=== PATIENT | male | born 1950 | race Caucasian/White ===

== ENCOUNTER 2024-01-21 10:23 | Inpatient (IN) | payer MEDICARE, OTHER, SELFPAY ==
[2024-01-21] VITALS (13 sets, daily range): BP systolic 135–142; BP diastolic 81–85; PULSE 55–79; RESP 18; TEMP 35.3–36.6; O2SAT 84–98; BMI 30.8
--- NOTE | 2024-01-21 10:59 | ED_ITS ---
HPI - General Adult General Chief complaint: Hip Injury/Pain Stated complaint: fall Time Seen by Provider: 01/21/24 10:47 History of Present Illness HPI narrative: [place] and c/o right hip pain. deformity noted . given zofran and dilaudid enroute 73-year-old man presenting to the emergency department via EMS after slip and fall in the past urine some in your injuring his right hip. Also had some right shoulder pain but that seems to have lessened a great deal. Denies hitting his head. No complaints of neck or back pain. No abdominal pain. Apparently has never has significant hip injury but has had knee replacement. Is having a great deal of pain in this right hip alleviated with Dilaudid via EMS. Nausea improved with smelling salts apparently. Was usual state of health today when he fell. 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 Is anticoagulated with apixaban with a history of atrial fibrillation and complete heart block requiring pacemaker remotely. Does have rate control with sotalol. History also of knee replacement and appendectomy Related Data Home Medications ?Medication ?Instructions ?Recorded ?Confirmed apixaban 5 mg tablet 5 mg PO BID 01/21/24 01/21/24 famotidine 20 mg tablet (Acid 20 mg PO DAILY 01/21/24 01/21/24 Controller) furosemide 20 mg tablet 20 mg PO DAILY 01/21/24 01/21/24 sotalol 80 mg tablet (Betapace) 80 mg PO DAILY 01/21/24 01/21/24 tamsulosin 0.4 mg capsule (Flomax) 0.4 mg PO DAILY 01/21/24 01/21/24 Allergies Allergy/AdvReac Type Severity Reaction Status Date / Time No Known Drug Allergies Allergy Verified 01/21/24 10:34 Review of Systems Status of ROS: Reports: 6 or more systems reviewed and unremarkable except as noted in History and below [facility] Social History Smoking Status: Never smoker Do you use any of these nicotine containing products: None Second hand tobacco smoke exposure: No How often do you have a drink containing alcohol: never AUDIT-C Alcohol total score: 0 Non-prescribed substance use: denies use service: No Exam Narrative: Exam Narrative: Pleasant. NAD. Seems little tired I think this is effect of hydromorphone. Head is atraumatic. He is wearing glasses. Eyes are bright consistent with lens implantation. Cranial nerves 2-12 look to be intact. Is breathing easily. Lungs are clear. Neck is supple nontender. Back nontender. No injury or deformity appreciated to back on partial log roll. Abdomen is soft or weight nontender. No mass appreciated. He has a well-healed scar in the right lower abdomen consistent with open appendectomy. Left knee is flexed, hip is flexed and does not elicit pain with manipulation of this hip. Right leg is straight and any manipulation of the hip causes pain though not to palpation. Movement of the hip joint particular elicits pain. Hemosiderin deposition in the lower leg. Mild-trace pretibial pitting edema. Generally well perfused. Moving upper extremities without difficulty. No pain to palpation over the chest wall clavicles. Oropharynx is a little dry with dentition in good repair. Const: Vital Signs, click to edit/add: Vital Signs - 24 hr 01/21/24 10:31 01/21/24 12:33 01/21/24 12:43 Temperature 95.6 F L Pulse Rate [Right Pulse Oximeter] 60 Respiratory Rate 18 Blood Pressure [Ri ght Upper Arm] 138/81 Pulse Oximetry 94 84 L 95 Oxygen Delivery Me thod Room Air Nasal Cannula Oxygen Flow Rate 2 01/21/24 12:45 01/21/24 13:00 01/21/24 13:30 Temperature Pulse Rate [Right Pulse Oximeter] Respiratory Rate Blood Pressure [Ri ght Upper Arm] Pulse Oximetry 91 97 94 Oxygen Delivery Me thod Nasal Cannula Oxygen Flow Rate 2 2 2 01/21/24 14:00 Temperature Pulse Rate [Right Pulse Oximeter] Respiratory Rate Blood Pressure [Ri ght Upper Arm] Pulse Oximetry 95 Oxygen Delivery Me thod Oxygen Flow Rate 2 Documenting provider has reviewed patient's vital signs: yes Course Vital Signs Vital signs: Initial Vital Signs Temperature 95.6 F L 01/21/24 10:31 Temperature Source Temporal Artery Scan 01/21/24 10:31 Pulse Rate 60 01/21/24 10:31 Respiratory Rate 18 01/21/24 10:31 Blood Pressure 138/81 01/21/24 10:31 Blood Pressure Mean 100 01/21/24 10:31 Blood Pressure Position Sitting 01/21/24 10:31 Pulse Oximetry 94 01/21/24 10:31 Oxygen Delivery Method Room Air 01/21/24 10:31 Vital Signs Temperature 95.6 F L 01/21/24 10:31 Pulse Rate 60 01/21/24 10:31 Respiratory Rate 18 01/21/24 10:31 Blood Pressure 138/81 01/21/24 10:31 Pulse Oximetry 94 01/21/24 10:31 Oxygen Delivery Method Room Air 01/21/24 10:31 Temperature 95.6 F L 01/21/24 10:31 Pulse Rate 60 01/21/24 10:31 Respiratory Rate 18 01/21/24 10:31 Blood Pressure 138/81 01/21/24 10:31 Pulse Oximetry 95 01/21/24 14:00 Oxygen Delivery Method Nasal Cannula 01/21/24 12:45 Oxygen Flow Rate 2 01/21/24 14:00 Medications Administered Medications: Discontinued Medications Generic Name Dose Route Start Last Admin Trade Name Freq PRN Reason Stop Dose Admin Hydromorphone HCl 0.5 mg 01/21/24 12:21 01/21/24 12:30 Hydromorphone 0.5 Mg/0.5 Ml Inj IVP 01/21/24 12:22 0.5 mg ONCE ONE Administration Sodium Chloride 500 mls @ 500 mls/hr 01/21/24 11:20 01/21/24 13:04 0.9 % Sodium Chloride 500 Ml IV 01/21/24 12:19 Infused .Q1H ONE Infusion Ondansetron HCl 4 mg 01/21/24 12:21 01/21/24 12:27 Ondansetron 2 Mg/Ml Inj IVP 01/21/24 12:22 4 mg ONCE ONE Administration Medical Decision Making MDM Narrative Medical decision making narrative: Slip and fall event with presumed right hip fracture. Will be doing imaging and collecting labs with anticipation of surgery. Otherwise generally appears well. Monitor fluid status. X-rays reviewed by me shows confirm right hip femoral neck fracture. Apixaban last taken at approximately 8:30 p.m. on 01/19 Study:?XRay-Hip Right 3 view hip-01/21/2024 12:04:43 PM Ordering Physician:Ivette Silva Final Report: Indication: Fell, right hip pain Technique: AP view of the pelvis, two views of the right hip. Comparison: None. Findings: Mildly displaced right femoral neck subcapital fracture. [id number] degenerative changes of the bilateral hips. Impression: Mildly displaced right femoral neck subcapital fracture. Did discuss with hospitalist anticipating admission. Has been about 20 hours since last apixaban dosing. Able to reach Orthopedics who accepts but too late in the day for surgery today it appears. Will be admitted overnight. Lab Data Lab results reviewed: Yes I reviewed the patient's lab results Labs: Lab Results 01/21/24 01/21/24 Range/Units 11:30 11:37 WBC 7.75 (4.50-11.00) K/uL RBC 4.53 (4.30-5.90) m/uL Hgb 14.9 (13.5-17.5) gm/dL Hct 44.6 (37.0-53.0) % MCV 99 (80-100) fL MCH 33 (26-34) pg MCHC 33 (32-36) gm/dL RDW Coeff of Leigha 12.9 (11.5-15.5) % Plt Count 138 L (140-440) K/uL Neut % (Auto) 74.4 H (42.0-72.0) % Lymph % (Auto) 18.3 L (20-44) % Bracken % (Auto) 6.5 (0.0-11.0) % Eos % (Auto) 0.5 (0.0-7.0) % Baso % (Auto) 0.0 (0.0-3.0) % Neut # (Auto) 5.80 (1.7-7.0) K/uL Lymph # (Auto) 1.40 (0.90-2.90) K/uL Bracken # (Auto) 0.50 (0.00-0.90) K/UL Eos # (Auto) 0.04 (0.00-0.50) K/uL Baso # (Auto) 0.00 (0.00-0.30) K/uL Abs Immat Gran (auto) 0.02 (0.00-0.30) K/uL Imm/Tot Granulo (auto) 0.3 % INR 0.99 (0.91-1.10) APTT 30 (23-33) Seconds Sodium 141 (135-149) mmol/L Potassium 3.8 (3.6-5.1) mmol/L Chloride 112 (96-114) mmol/L Carbon Dioxide 25 (20-32) mmol/L Anion Gap 4 L (7-15) mEq/L BUN 19 (7-30) mg/dL Creatinine 1.0 (0.5-1.5) mg/dL Estimated Creat Clear 80.44 Estimated GFR 78 ml/min Glucose 118 H (60-115) mg/dL Calcium 9.5 (8.4-10.6) mg/dL ECG Data Attestation: I personally reviewed and interpreted this ECG as follows: (Normal sinus rhythm with atrial pacer spike. Rate of 69) Discharge Plan Discharge Clinical Impression: Hip fracture Patient Disposition: Admitted As Observation Condition: Stable
--- NOTE | 2024-01-21 11:17 | CRLHL7_ITS ---
For Patients: As a result of the Century Cures Act, medical imaging exams and procedure reports are released immediately into your electronic medical record. You may view this report before your referring provider. If you have questions, please contact your health care provider. INDICATION: Fall, right hip pain TECHNIQUE: Single view pelvis with AP and frogleg views of the right hip. COMPARISONS: None available. FINDINGS: Femoral heads are well-seated in the acetabula. There is an impacted subcapital femoral neck fracture. Moderate degenerative changes of the bilateral hips are appreciated with loss of joint space and marginal osteophyte formation. Small joint effusion is appreciated. IMPRESSION: Impacted subcapital femoral neck fracture of the right hip. Dictated by José Luis Mcqueen MD @ 01/21/2024 12:36:12 PM (Electronically Signed)
--- NOTE | 2024-01-21 11:18 | CRLHL7_ITS ---
For Patients: As a result of the Cures Act, medical imaging exams and procedure reports are released immediately into your electronic medical record. You may view this report before your referring provider. If you have questions, please contact your health care provider. INDICATION: Fell, right hip pain. pre-op TECHNIQUE: Chest 1 views. COMPARISON: None. FINDINGS: Cardiovascular and mediastinum: Cardiomediastinal silhouette is borderline enlarged. Left chest wall pacer with leads extending to the right atrium and ventricle. Lungs and pleural spaces: Lungs are clear. No sign of pleural effusion. No pneumothorax. Bones and soft tissues: No significant findings. IMPRESSION: No acute cardiopulmonary process identified. Dictated by Nikkie Gutierrez MD @ 01/21/2024 12:41:47 PM (Electronically Signed)
[2024-01-21] MEDS: 0.9 % SODIUM CHLORIDE 500 ML 500 ML IV (11:40)
[2024-01-21 11:49] LABS: Eosinophils Absolute Auto 0.04 K/uL (0.00-0.50); Eosinophils Percent Auto 0.5 % (0.0-7.0); Hematocrit 44.6 % (37.0-53.0); Hemoglobin* 14.9 gm/dL (13.5-17.5); Immature Granulocytes Abs Auto 0.02 K/uL (0.00-0.30); Immature Granulocytes Pct Auto 0.3 %; Lymphocytes Percent Auto 18.3 % (20-44); Mean Corpuscular HGB Conc 33 gm/dL (32-36); Mean Corpuscular Hemoglobin 33 pg (26-34); Mean Corpuscular Volume 99 fL (80-100); Monocytes Percent Auto 6.5 % (0.0-11.0); Neutrophils Percent Auto 74.4 % (42.0-72.0); Platelet Count* 138 K/uL (140-440); RDW Coefficient of Variation % 12.9 % (11.5-15.5); Red Blood Count 4.53 m/uL (4.30-5.90); White Blood Count* 7.75 K/uL (4.50-11.00)
[2024-01-21 12:17] LABS: Chloride* 112 mmol/L (96-114); Potassium* 3.8 mmol/L (3.6-5.1); Slide Review Reflex No; Sodium* 141 mmol/L (135-149)
[2024-01-21 12:19] LABS: Est. Creatinine Clearance* 80.44; Estimated Glomerular Filt Rate 78 ml/min
[2024-01-21 12:20] LABS: Anion Gap 4 mEq/L (7-15); Blood Urea Nitrogen* 19 mg/dL (7-30); Calcium* 9.5 mg/dL (8.4-10.6); Carbon Dioxide* 25 mmol/L (20-32); Glucose* 118 mg/dL (60-115)
[2024-01-21 12:25] LABS: INR 0.99 (0.91-1.10); Prothrombin Time 13.7 Seconds
[2024-01-21 12:26] LABS: Partial Thromboplastin Time* 30 Seconds (23-33)
[2024-01-21] MEDS: ONDANSETRON 2 MG/ML inj 4 MG IVP (12:27)
[2024-01-21] MEDS: HYDROmorphone 0.5 mg/0.5 ml inj IVP (12:30)
--- NOTE | 2024-01-21 14:54 | P.IMHP_ITS ---
Hospitalist- H&P: HPI History of Present Illness Date Seen: 01/21/24 Chief complaint: fall Narrative: Ezio Horton is a 73 year old male past medical history significant for factor 5 Leiden mutation, history of DVT, history of PE, atrial fibrillation status post cardioversion on chronic anticoagulation, complete AV block, status post pacemaker, recent diagnosis prostate cancer is admitted to medical floor from the ED for further management right hip fracture. 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 Denies hitting his head. Currently denies headache or dizziness. Denies chest pain or shortness of breath. No recent fevers. Had some nausea in the ED when given Dilaudid otherwise denies ongoing nausea, recent vomiting or diarrhea. Hip pain currently 4-01/01. ED provider discussed with Orthopedic Surgery, Dr. Power, plan for surgical repair likely tomorrow. Patient has a significant cardiac history (he's been told it's not the muscle, just the wiring), chronically anticoagulated, last dose Eliquis last night 01/19 at 8:30 p.m. Has a dual chamber pacemaker, last interrogated yesterday 01/19. History of previous surgeries, denies anesthesia complications. History of factor 5 Leiden with DVTs, PEs, chronically anticoagulated. Review of Systems Narrative: REVIEW OF SYSTEMS: Complete review of systems performed and negative unless otherwise stated in HPI or below. [facility] Medical History Prostate cancer ?C61 - Malignant neoplasm of prostate (ICD-10) Systolic heart failure ?I50.20 - Unspecified systolic (congestive) heart failure (ICD-10) Ascending aorta dilatation ?I77.810 - Thoracic aortic ectasia (ICD-10) History of DVT of lower extremity ?Z86.718 - Personal history of other venous thrombosis and embolism (ICD-10) History of syncope ?Z87.898 - Personal history of other specified conditions (ICD-10) Factor 5 Leiden mutation, heterozygous ?D68.51 - Activated protein C resistance (ICD-10) BPH (benign prostatic hyperplasia) ?N40.0 - Benign prostatic hyperplasia without lower urinary tract symptoms (ICD-10) Complete AV block ?I44.2 - Atrioventricular block, complete (ICD-10) History of pulmonary embolism ?Z86.711 - Personal history of pulmonary embolism (ICD-10) Cardiomyopathy ?I42.9 - Cardiomyopathy, unspecified (ICD-10) Atrial fibrillation ?I48.91 - Unspecified atrial fibrillation (ICD-10) Surgical History Status post placement of cardiac pacemaker ?Z95.0 - Presence of cardiac pacemaker (ICD-10) Social History Smoking Status: Never smoker Do you use any of these nicotine containing products: None Second hand tobacco smoke exposure: No How often do you have a drink containing alcohol: never AUDIT-C Alcohol total score: 0 Non-prescribed substance use: denies use service: No Meds Home Medications and Allergies Home Medications ?Medication ?Instructions ?Recorded ?Confirmed ?Type apixaban 5 mg tablet 5 mg PO BID 01/21/24 01/21/24 History famotidine 20 mg tablet (Acid 20 mg PO DAILY 01/21/24 01/21/24 History Controller) furosemide 20 mg tablet 20 mg PO DAILY 01/21/24 01/21/24 History sotalol 80 mg tablet (Betapace) 80 mg PO DAILY 01/21/24 01/21/24 History tamsulosin 0.4 mg capsule (Flomax) 0.4 mg PO DAILY 01/21/24 01/21/24 History Allergies Allergy/AdvReac Type Severity Reaction Status Date / Time No Known Drug Allergies Allergy Verified 01/21/24 10:34 Exam Narrative: Exam Narrative: PHYSICAL EXAM General: Pleasant, conversant, NAD HEENT: Normocephalic, atraumatic, sclera white, EOMI, oral mucosa moist Cardiovascular: RRR, S1S2. RLE +1 pitting edema Pulmonary: CTA bilaterally without rhonchi, rales, expiratory wheezes. No dyspnea on room air Abdominal: Soft, nondistended, NTTP Neurological: Alert, answering questions appropriately, cranial nerves intact, no focal findings Extremities: RLE externally rotated, shortened. Neurovascularly intact Skin: Warm, dry. Const: Vital Signs, click to edit/add: Vital Signs - 24 hr 01/21/24 10:31 01/21/24 12:33 01/21/24 12:43 Temperature 95.6 F L Pulse Rate [Right Pulse Oximeter] 60 Respiratory Rate 18 Blood Pressure [Ri ght Upper Arm] 138/81 Pulse Oximetry 94 84 L 95 Oxygen Delivery Me thod Room Air Nasal Cannula Oxygen Flow Rate 2 01/21/24 12:45 01/21/24 13:00 01/21/24 13:30 Temperature Pulse Rate [Right Pulse Oximeter] Respiratory Rate Blood Pressure [Ri ght Upper Arm] Pulse Oximetry 91 97 94 Oxygen Delivery Me thod Nasal Cannula Oxygen Flow Rate 2 2 2 01/21/24 14:00 Temperature Pulse Rate [Right Pulse Oximeter] Respiratory Rate Blood Pressure [Ri ght Upper Arm] Pulse Oximetry 95 Oxygen Delivery Me thod Oxygen Flow Rate 2 Hospitalist - H&P: Result Labs Labs: Short CBC 01/21/24 Range/Units 11:37 WBC 7.75 (4.50-11.00) K/uL Hgb 14.9 (13.5-17.5) gm/dL Hct 44.6 (37.0-53.0) % Plt Count 138 L (140-440) K/uL BMP 01/21/24 11:37 Sodium 141 Potassium 3.8 Chloride 112 Carbon Dioxide 25 BUN 19 Creatinine 1.0 Glucose 118 H Calcium 9.5 ECG ECG interpretation date: 01/21/24 Interpretation: Normal sinus rhythm with sinus arrhythmia, nonspecific intraventricular block, ventricular rate 69, QTC 471 Imaging Chest x-ray: Attestation: I have reviewed the pertinent imaging results. Radiologist's impression: Chest 1 views. COMPARISON: None. FINDINGS: Cardiovascular and mediastinum: Cardiomediastinal silhouette is borderline enlarged. Left chest wall pacer with leads extending to the right atrium and ventricle. Lungs and pleural spaces: Lungs are clear. No sign of pleural effusion. No pneumothorax. Bones and soft tissues: No significant findings. IMPRESSION: No acute cardiopulmonary process identified. Hip plain film: Attestation: I have reviewed the pertinent imaging results. Radiologist's impression: Single view pelvis with AP and frogleg views of the right hip. COMPARISONS: None available. FINDINGS: Femoral heads are well-seated in the acetabula. There is an impacted subcapital femoral neck fracture. Moderate degenerative changes of the bilateral hips are appreciated with loss of joint space and marginal osteophyte formation. Small joint effusion is appreciated. IMPRESSION: Impacted subcapital femoral neck fracture of the right hip. Assessment and Plan Assessment and plan (1) Hip fracture: Problem comment: Impacted subcapital femoral neck fracture of the right hip Plan for surgical intervention, likely to the OR 01/22/24 Hip precautions Pain and nausea management as needed NPO after midnight Last dose Eliquis 01/20/2024 at 8:30 p.m.. SCDs for VTE PPX PT/OT postoperatively Status: Acute (2) Atrial fibrillation: Problem comment: EKG shows NSR with sinus arrhythmia, nonspecific intraventricular block, ventricular rate 69, QTC 471 Has been on sotalol since 2009, last dose this am, resume post operatively Cardioversion 2017, 2018, 2020, 2021 CHADS VASc risk score 1, switched to Eliquis (from warfarin) in 2019 Last dose Eliquis 01/19 at 2030pm, hold preoperatively Telemetry Followed by [facility], last visit yesterday 01/20/2024 Echocardiogram June 2022 1. LVEF estimate 55-60%. Normal LV size and wall thickness. 2. Normal RV size and global function. 3. No significant valvular abnormalities. 4. Moderately enlarged left atrium. 5. Normal PASP and RA pressure estimates. 6. Mildly dilated ascending aorta [4.2 cm]. Status: Chronic (3) Status post placement of cardiac pacemaker: Problem comment: Dual chamber permanent pacemaker placed September 2019 Last device check yesterday 01/20/24 Status: Chronic (4) Complete AV block: Problem comment: Diagnosed September 2019; s/p dual chamber permanent pacemaker Status: Chronic (5) Systolic heart failure: Problem comment: ISSA December 2017 showed a reduction in global systolic function. Underwent cardioversion 2018. Follow-up echocardiogram August 2019 showed normal left ventricular function Continues on Lasix, resume postoperatively Status: Acute (6) Factor 5 Leiden mutation, heterozygous: Problem comment: With h/o DVT, PE Chronic anticoagulation Status: Chronic (7) BPH (benign prostatic hyperplasia): Problem comment: Continue tamsulosin Status: Acute (8) Prostate cancer: Problem comment: Recently diagnosed, unable to find exact staging Scheduled for prostatectomy with bilateral lymph node dissection 02/16/24 Status: Acute Total Time Spent Total Time Spent: Total time spent caring for the patient today was 75 minutes. This includes time spent for the visit reviewing the chart, time spent during the visit, time spent after the visit and documentation and planning in coordination of care.
[2024-01-21] MEDS: ACETAMINOPHEN 500 MG TABLET 1000 MG PO ×2 (16:18→21:55)
[2024-01-21] MEDS: OXYCODONE 5 MG TABLET PO (19:41)
[2024-01-21] MEDS: TAMSULOSIN HCL 0.4 MG CAPSULE PO (20:52)
[2024-01-21] MEDS: SOTALOL HCL 80 MG TABLET 160 MG PO (20:53)
[2024-01-21] MEDS: SODIUM CHLORIDE 0.9 % (FLUSH) 10 ML SYRINGE 5 ML IVF (20:53)
--- NOTE | 2024-01-21 22:56 | PC.NURSE ---
End of shift: Patient pleasant and cooperative, A&O. VSS, afebrile. SpO2 maintained above 90% on RA. Patient reports pain in his right hip rating a 4-5 out of 10, managed with PRN medication, see MAR. Tolerating regular diet. Using urinal on bedside independently. Turned and repositioned this shift.
[2024-01-22] VITALS (26 sets, daily range): BP systolic 103–144; BP diastolic 61–96; PULSE 60–76; RESP 13–18; TEMP 36.1–37.3; O2SAT 90–97
[2024-01-22] MEDS: OXYCODONE 5 MG TABLET PO ×3 (00:11→22:03)
[2024-01-22] MEDS: ACETAMINOPHEN 500 MG TABLET 1000 MG PO ×3 (04:02→22:03)
--- NOTE | 2024-01-22 06:26 | PC.NURSE ---
End of shift note [id number]: Pt noted to be alert & oriented x 4 and able to make needs known. He has been continent of bladder using urinal. PRN Oxycodone administered for up to 5/10 R hip pain along with encouraging rest, providing ice and performing repositioning in bed as tolerated. He also remains on scheduled Tylenol for pain control. VSS and pt has been afebrile. Pt has been on RA throughout the shift. Pt NPO as of midnight in preparation for surgery today. Pt on telemetry with NSR noted. SCDs worn to bilateral lower extremities. IV to L wrist SL.
[2024-01-22 07:30] LABS: Hematocrit 43.1 % (37.0-53.0); Hemoglobin* 14.3 gm/dL (13.5-17.5); Mean Corpuscular HGB Conc 33 gm/dL (32-36); Mean Corpuscular Hemoglobin 33 pg (26-34); Mean Corpuscular Volume 100 fL (80-100); Platelet Count* 140 K/uL (140-440); Red Blood Count 4.31 m/uL (4.30-5.90); White Blood Count* 7.19 K/uL (4.50-11.00)
[2024-01-22 07:40] LABS: Slide Review Reflex No
[2024-01-22 07:47] LABS: Chloride* 111 mmol/L (96-114); Sodium* 140 mmol/L (135-149)
[2024-01-22 07:48] LABS: Potassium* 4.1 mmol/L (3.6-5.1)
[2024-01-22 07:50] LABS: Anion Gap 5 mEq/L (7-15); Carbon Dioxide* 24 mmol/L (20-32); Creatinine* 0.8 mg/dL (0.5-1.5); Est. Creatinine Clearance* 80.44; Estimated Glomerular Filt Rate 92 ml/min
[2024-01-22 07:51] LABS: Blood Urea Nitrogen* 17 mg/dL (7-30); Calcium* 8.7 mg/dL (8.4-10.6); Glucose* 108 mg/dL (60-115)
[2024-01-22] MEDS: SOTALOL HCL 80 MG TABLET 160 MG PO ×2 (08:04→20:55)
[2024-01-22] MEDS: FAMOTIDINE 20 MG TABLET PO (08:04)
[2024-01-22 08:07] LABS: INR 1.03 (0.91-1.10); Prothrombin Time 14.1 Seconds
[2024-01-22] MEDS: SODIUM CHLORIDE 0.9 % (FLUSH) 10 ML SYRINGE 5 ML IVF ×2 (08:07→20:14)
[2024-01-22] MEDS: LACTATED RINGERS 1000 ML 1,000 ML 35 ML IV (08:15)
[2024-01-22] MEDS: LACTATED RINGERS 500 ML 500 ML IV (09:05)
--- NOTE | 2024-01-22 09:40 | NUTR.NU ---
Nutrition screen initiated related to nursing referral for skin risk. Height 77, weight 282.5 lbs, BMI 30.8. No weight history. Patient stated weight at 260 lbs at admit. Admit with hip fracture related to a fall. Admit diet Regular with 100% intake at the evening meal. NPO since for surgery today. No nutrition concerns at this time. Monitor diet advancement, tolerance and intake and follow up if needed.
[2024-01-22] MEDS: LACTATED RINGERS 1000 ML 1,000 ML 100 ML IV (09:50)
--- NOTE | 2024-01-22 10:58 | PM.ORCN ---
History of Present Illness HPI Date Seen: 01/21/24 Consult date: 01/21/24 Chief complaint: fall Narrative: Reinier is a pleasant 73-year-old male. He reports a fall onto his right hip on 01/21/2024. 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 He unfortunately slipped despite using a pitchfork to help with some balance. [place] was right hip and had significant pain. Difficulty bearing weight. Presented [place] [facility]. X-rays were obtained revealed a right displaced femoral neck fracture. Orthopedics was consulted accordingly. He does use Eliquis b.i.d. for blood thinning purposes. [facility] Medical History Prostate cancer ?C61 - Malignant neoplasm of prostate (ICD-10) Systolic heart failure ?I50.20 - Unspecified systolic (congestive) heart failure (ICD-10) Ascending aorta dilatation ?I77.810 - Thoracic aortic ectasia (ICD-10) History of DVT of lower extremity ?Z86.718 - Personal history of other venous thrombosis and embolism (ICD-10) History of syncope ?Z87.898 - Personal history of other specified conditions (ICD-10) Factor 5 Leiden mutation, heterozygous ?D68.51 - Activated protein C resistance (ICD-10) BPH (benign prostatic hyperplasia) ?N40.0 - Benign prostatic hyperplasia without lower urinary tract symptoms (ICD-10) Complete AV block ?I44.2 - Atrioventricular block, complete (ICD-10) History of pulmonary embolism ?Z86.711 - Personal history of pulmonary embolism (ICD-10) Cardiomyopathy ?I42.9 - Cardiomyopathy, unspecified (ICD-10) Atrial fibrillation ?I48.91 - Unspecified atrial fibrillation (ICD-10) Surgical History Status post placement of cardiac pacemaker ?Z95.0 - Presence of cardiac pacemaker (ICD-10) Social History What is your current living situation?: I presently have a place to live Problems where you live: no known problems Problems where you live details: n/a In the past 12 months, utilities in danger of being shut off: no In past 12 months, lack of transportation kept you from medical appts, meetings, work, or getting things needed for daily living: no In the past 12 mos, have been you worried that your food would run out before you had money to buy more?: never true In the past 12 mos, the food you bought just didn't last and you didn't have money to buy more?: never true Highest level of school completed/degree received: Associate degree: occupational, technical, vocational program Smoking Status: Former smoker Do you use any of these nicotine containing products: None Second hand tobacco smoke exposure: No How often do you have a drink containing alcohol: 2-4 times a month Alcohol type: beer How often do you have six or more drinks on one occasion: Never AUDIT-C Alcohol total score: 2 Non-prescribed substance use: denies use Caffeine: Yes How often does anyone, including family, friends and others, physically hurt you: never How often does anyone, including family, friends and others, insult or talk down to you: never How often does anyone, including family, friends and others, threaten you with harm: never How often does anyone, including family, friends and others, scream or curse at you: never service: Yes Meds Home Medications and Allergies Home Medications ?Medication ?Instructions ?Recorded ?Confirmed ?Type apixaban 5 mg tablet 5 mg PO BID 01/21/24 01/21/24 History famotidine 20 mg tablet (Acid 20 mg PO DAILY 01/21/24 01/21/24 History Controller) furosemide 20 mg tablet 20 mg PO DAILY 01/21/24 01/21/24 History sotalol 80 mg tablet (Betapace) 160 mg PO BID 01/21/24 01/21/24 History tamsulosin 0.4 mg capsule (Flomax) 0.4 mg PO HS 01/21/24 01/21/24 History Allergies Allergy/AdvReac Type Severity Reaction Status Date / Time No Known Drug Allergies Allergy Verified 01/21/24 10:34 Ortho Exam Narrative Exam Narrative: Alert and ordered x3. No acute distress. Nonlabored been. He provides all history today. Cooperative exam. Mild supine on the hospital bed. No erythema, induration, or other cutaneous changes about the right hip. He does have pain about the right hip with any attempted hip range of motion or knee range of motion. Neurologic intact in the superficial and deep peroneal as well as plantar distribution to sensory light touch and motor function today. 2+ DP and PT pulse. Const Vital Signs, click to edit/add: Vital Signs - 24 hr 01/21/24 12:33 01/21/24 12:43 01/21/24 12:45 Temperature Pulse Rate Pulse Rate [Pulse Oximeter] Respiratory Rate Blood Pressure [Left Arm] Pulse Oximetry 84 L 95 91 Oxygen Delivery Method Nasal Cannula Nasal Cannula Oxygen Flow Rate 2 2 01/21/24 13:00 01/21/24 13:30 01/21/24 14:00 Temperature Pulse Rate Pulse Rate [Pulse Oximeter] Respiratory Rate Blood Pressure [Left Arm] Pulse Oximetry 97 94 95 Oxygen Delivery Method Oxygen Flow Rate 2 2 2 01/21/24 15:05 01/21/24 15:36 01/21/24 19:00 Temperature 97.4 F L 97.4 F L 97.8 F Pulse Rate Pulse Rate [Pulse Oximeter] 55 L 55 L 71 Respiratory Rate 18 18 18 Blood Pressure [Left Arm] 142/84 H 142/84 H 135/85 Pulse Oximetry 98 98 93 Oxygen Delivery Method Nasal Cannula Nasal Cannula Room Air Oxygen Flow Rate 1 1 01/21/24 19:29 01/21/24 23:00 01/21/24 23:21 Temperature Pulse Rate 79 74 Pulse Rate [Pulse Oximeter] 70 Respiratory Rate 18 Blood Pressure [Left Arm] Pulse Oximetry Oxygen Delivery Method Oxygen Flow Rate 01/22/24 00:06 01/22/24 03:00 01/22/24 07:00 Temperature 98.4 F 97.7 F 97.7 F Pulse Rate Pulse Rate [Pulse Oximeter] 70 60 65 Respiratory Rate 18 16 16 Blood Pressure [Left Arm] 121/70 124/84 125/82 Pulse Oximetry 93 93 94 Oxygen Delivery Method Room Air Room Air Room Air Oxygen Flow Rate 01/22/24 07:14 Temperature Pulse Rate 60 Pulse Rate [Pulse Oximeter] Respiratory Rate Blood Pressure [Left Arm] Pulse Oximetry Oxygen Delivery Method Oxygen Flow Rate Results Labs Labs: Laboratory Results - last 48 hr 01/21/24 01/21/24 01/22/24 11:30 11:37 05:52 WBC 7.75 7.19 RBC 4.53 4.31 Hgb 14.9 14.3 Hct 44.6 43.1 MCV 99 100 MCH 33 33 MCHC 33 33 RDW Coeff of Leigha 12.9 Plt Count 138 L 140 Neut % (Auto) 74.4 H Lymph % (Auto) 18.3 L [place] % (Auto) 6.5 Eos % (Auto) 0.5 Baso % (Auto) 0.0 Neut # (Auto) 5.80 Lymph # (Auto) 1.40 [place] # (Auto) 0.50 Eos # (Auto) 0.04 Baso # (Auto) 0.00 Abs Immat Gran (auto) 0.02 Imm/Tot Granulo (auto) 0.3 INR 0.99 1.03 APTT 30 Sodium 141 140 Potassium 3.8 4.1 Chloride 112 111 Carbon Dioxide 25 24 Anion Gap 4 L 5 L BUN 19 17 Creatinine 1.0 0.8 Estimated Creat Clear 80.44 80.44 Estimated GFR 78 92 Glucose 118 H 108 Calcium 9.5 8.7 Diagnostic results Additional Comments: AP pelvis as well as AP and cross-table lateral views of the right hip from [facility] dated 01/21/2024 that were ordered by different provider and reviewed by me. This demonstrates a right femoral neck fracture that is in the subcapital region, displaced, shortened, and external rotated. No appreciable extension of the fracture distally. Well-preserved hip joint space otherwise. Assessment and Plan Assessment and plan (1) Hip fracture: Problem comment: Impacted subcapital femoral neck fracture of the right hip Plan for surgical intervention, likely to the OR 01/22/24 Hip precautions Pain and nausea management as needed NPO after midnight Last dose Eliquis 01/20/2024 at 8:30 p.m.. SCDs for VTE PPX PT/OT postoperatively Status: Acute Total time spent: Total time spent is greater than 50% in coordination of care (as documented) at patient's floor/unit and/or counseling patient: (2) Atrial fibrillation: Problem comment: EKG shows NSR with sinus arrhythmia, nonspecific intraventricular block, ventricular rate 69, QTC 471 Has been on sotalol since 2009, last dose this am, resume post operatively Cardioversion 2017, 2018, 2020, 2021 CHADS VASc risk score 1, switched to Eliquis (from warfarin) in 2019 Last dose Eliquis 01/19 at 2030pm, hold preoperatively Telemetry Followed by [facility] last visit yesterday 01/20/2024 Echocardiogram June 2022 1. LVEF estimate 55-60%. Normal LV size and wall thickness. 2. Normal RV size and global function. 3. No significant valvular abnormalities. 4. Moderately enlarged left atrium. 5. Normal PASP and RA pressure estimates. 6. Mildly dilated ascending aorta [4.2 cm]. Status: Chronic Total time spent: Total time spent is greater than 50% in coordination of care (as documented) at patient's floor/unit and/or counseling patient: (3) Status post placement of cardiac pacemaker: Problem comment: Dual chamber permanent pacemaker placed September 2019 Last device check yesterday 01/20/24 Status: Chronic Total time spent: Total time spent is greater than 50% in coordination of care (as documented) at patient's floor/unit and/or counseling patient: (4) Complete AV block: Problem comment: Diagnosed September 2019; s/p dual chamber permanent pacemaker Status: Chronic Total time spent: Total time spent is greater than 50% in coordination of care (as documented) at patient's floor/unit and/or counseling patient: (5) Systolic heart failure: Problem comment: ISSA December 2017 showed a reduction in global systolic function. Underwent cardioversion 2018. Follow-up echocardiogram August 2019 showed normal left ventricular function Continues on Lasix, resume postoperatively Status: Acute Total time spent: Total time spent is greater than 50% in coordination of care (as documented) at patient's floor/unit and/or counseling patient: (6) Factor 5 Leiden mutation, heterozygous: Problem comment: With h/o DVT, PE Chronic anticoagulation Status: Chronic Total time spent: Total time spent is greater than 50% in coordination of care (as documented) at patient's floor/unit and/or counseling patient: (7) BPH (benign prostatic hyperplasia): Problem comment: Continue tamsulosin Status: Acute Total time spent: Total time spent is greater than 50% in coordination of care (as documented) at patient's floor/unit and/or counseling patient: (8) Prostate cancer: Problem comment: Recently diagnosed, unable to find exact staging Scheduled for prostatectomy with bilateral lymph node dissection 02/16/24 Status: Acute Total time spent: Total time spent is greater than 50% in coordination of care (as documented) at patient's floor/unit and/or counseling patient: Plan I had a good discussion today with the patient regarding the right displaced femoral neck fracture. As he is otherwise a community ambulator, I do think surgical intervention is prudent to provide a right hip bipolar hemiarthroplasty. This should allow him to perform range of motion and weight-bearing on the right hip so that he can be mobile as soon as possible. I have talked to the hospitalist team regarding his current situation and do feel that surgery is indicated. He is on Eliquis. He took his last dose on the evening of 01/20/2024. I will also talk with the anesthesia team to determine if and when surgery is indicated as well as what type of anesthesia may be necessary/appropriate. Postoperatively, he may benefit from a transfer to a longterm facility/rehab facility. Social work consult will be valuable for this purpose. PT & OT consult will be helpful as well. I did discussed with Don the risks, benefits, and alternatives to this urgently indicated surgery. This includes local risks such as infection, instability of the hip, progression of fracture, ongoing pain, etc., but also include systemic risks such as CO, stroke, VT, etc.. I believe all questions were answered.
[2024-01-22] MEDS: CEFAZOLIN 2 GM in 0.9 % SODIUM CHLORIDE Mini-bag 100 ML IVPB ×2 (11:15→16:45)
[2024-01-22] MEDS: TRANEXAMIC ACID 100 MG/ML INJ 1000 MG IV (11:26)
--- NOTE | 2024-01-22 12:05 | W.ANESCHARGE ---
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
--- NOTE | 2024-01-22 13:20 | CRLHL7_ITS ---
For Patients: As a result of the Cures Act, medical imaging exams and procedure reports are released immediately into your electronic medical record. You may view this report before your referring provider. If you have questions, please contact your health care provider. Indication: Postop Technique: AP hip centered pelvis and lateral view right hip Findings/Impression: Hardware from a right bipolar hip arthroplasty is in satisfactory position. Bone alignment is normal. No sign of acute fracture. Postop changes are within normal limits. Dictated by Ricardo Starr MD @ 01/26/2024 12:34:41 PM (Electronically Signed)
--- NOTE | 2024-01-22 13:29 | PM.ORPRC ---
Procedure Note Date of procedure: 01/22/24 Procedure: PREOPERATIVE DIAGNOSIS: 1. Right femoral neck fracture, displaced, acute, closed POSTOPERATIVE DIAGNOSIS: 1. Right femoral neck fracture, displaced, acute, closed PROCEDURE: 1. Right hip bipolar hemiarthroplasty for femoral neck fracture SURGEON: Rick Silver MD. HOME HEALTH TRAVEL OT: Donell Sun PA-C - Of note, an records assistant was critical for this case to aid in patient positioning, tissue retraction, limb manipulation/positioning, hip reduction and dislocation, clearing of cement, and closure. ANESTHESIA: General endotracheal anesthetic IMPLANTS: DePuy cemented Cidra stem (size 6 with standard neck); (+5 mm) 28mm inner head diameter and 54 mm outer head diameter; 11 centralizer] COMPLICATIONS: None evident INDICATIONS: The patient is a pleasant 73-year-old male who has experienced severe right hip pain after a fall on 01/21/2024. 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 Unable to bear weight. Presented to [facility]. X-rays revealed a right femoral neck fracture that was displaced. After medical evaluation found the patient to be in optimal condition, surgery was recommended for stabilization of the hip. DESCRIPTION OF PROCEDURE: Following a thorough discussion of risks, benefits, and alternatives consent was obtained and the right hip was marked. The patient was brought to the operating room and placed supine on the operating table. Induction of anesthesia was undertaken. They were then positioned lateral decubitus with the operative side up. 3 g IV Ancef and 1 g tranexamic acid was administered within 1 hr of incision preoperatively. Proper time-out was performed identifying proper patient, site, and procedure. The operative extremity was prepped and draped in the appropriate sterile fashion using ChloraPrep with head in neutral alignment in all bony prominences well padded and an axillary roll placed. A curvilinear longitudinal incision was made in line with the posterior 1/3rd of the greater trochanter, fairly equally divided proximal and distal to the greater trochanter tip. Sharp incision through skin and Bovie cautery through subcutaneous tissue allowed hemostasis to be achieved. The ITB band was identified, divided in line with its fibers as was the gluteal fascia. The deeper muscle fibers were bluntly divided. The greater trochanteric bursa was excised, and the short external rotators were then released from their insertion including the piriformis. These were tagged for later repair. Additionally the capsule was released in an inverted T-fashion. The fracture hematoma was immediately encountered and evacuated. Capsule was released down to the lesser trochanter. The femoral head was removed, and sized out to be approximately a 54 mm outer head. At this stage, the femoral neck was freshened with a sagittal saw with caution taken to avoid injury to the greater trochanter. The femur was prepared initially with a box osteotome and hand reamers followed by surgical broaches up to the size noted above. Various head sizes were then trialed and found to have an excellent fit/stability with the implants noted above. At this stage, thorough irrigation normal saline was performed, and cement was mixed on back table. The cement restrictor was placed deep after thorough irrigation and preparation of the femoral canal, followed by cementing, pressurizing, and stem insertion while holding it in valgus to avoid a varus position. Trial heads were again inserted and found to have excellent stability and length when compared to the contralateral lower extremities. Thus, the real heads were open, and inserted. Thorough irrigation with normal saline was then performed followed by closure of the capsule followed by the short external rotators through drill holes in the greater trochanter with #1 PDS. Thorough irrigation was again performed, and closure of the ITB band was completed with #1 Stratafix. Subcutaneous and subcuticular closure was closed with 2-O Vicryl and 4 -0 Monocryl, respectively. Dressings were applied, and the patient was awoken from anesthesia and transferred the PACU in stable condition. PLAN: 1. Weight bear as tolerated on the operative extremity - posterior hip precautions. 2. 23 hr perioperative antibiotics. 3. Ice. 4. PT/OT consults for ambulation assistance/mobility education - posterior hip precautions. 5. Social work consult for discharge planning. 6. Analgesics PRN 7. DVT prophylaxis with at SCDs, Matteo Sarahe, and apixaban (a medicine he is on preoperatively).
--- NOTE | 2024-01-22 13:36 | W.ANESCHARGE ---
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
--- NOTE | 2024-01-22 15:02 | P.IMPN_ITS ---
Progress Note: A&P Assessment and plan (1) Hip fracture: Problem details: Impacted subcapital femoral neck fracture of the right hip Plan for surgical intervention, likely to the OR 01/22/24 Hip precautions Pain and nausea management as needed NPO after midnight Last dose Eliquis 01/20/2024 at 8:30 p.m.. SCDs for VTE PPX PT/OT postoperatively Status: Acute (2) Atrial fibrillation: Problem details: EKG shows NSR with sinus arrhythmia, nonspecific intraventricular block, ventricular rate 69, QTC 471 Has been on sotalol since 2009, last dose this am, resume post operatively Cardioversion 2017, 2018, 2020, 2021 CHADS VASc risk score 1, switched to Eliquis (from warfarin) in 2019 Last dose Eliquis 01/19 at 2030pm, hold preoperatively Telemetry Followed by [facility] [place], last visit yesterday 01/20/2024 Echocardiogram June 2022 1. LVEF estimate 55-60%. Normal LV size and wall thickness. 2. Normal RV size and global function. 3. No significant valvular abnormalities. 4. Moderately enlarged left atrium. 5. Normal PASP and RA pressure estimates. 6. Mildly dilated ascending aorta [4.2 cm]. Status: Chronic (3) Cardiomyopathy: Problem details: Currently appears well compensated. Cardiology appointment on January 19 noted no change of plans Status: Acute (4) Complete AV block: Problem details: Diagnosed September 2019; s/p dual chamber permanent pacemaker Status: Chronic (5) Status post placement of cardiac pacemaker: Problem details: Dual chamber permanent pacemaker placed September 2019 Last device check yesterday 01/20/24 Status: Chronic (6) BPH (benign prostatic hyperplasia): Problem details: Continue tamsulosin. Monitor for urinary retention postop Status: Acute (7) Systolic heart failure: Problem details: Well-compensated Status: Acute (8) Prostate cancer: Problem details: Recently diagnosed, unable to find exact staging Scheduled for prostatectomy with bilateral lymph node dissection 02/16/24. Patient will need to review plan with Urology given current hip fracture surgery Status: Acute (9) History of DVT of lower extremity: Problem details: 2019. Anticoagulate postop with Eliquis Status: Acute Plan Patient will proceed to bipolar arthroplasty today. Concern about bleeding with Eliquis having been last taken about 36 hours prior to surgery. Concern about recurrent AFib. Continue sotalol postop. Concern about urinary retention. Concern about risk for DVT with previous DVT history. Resume Eliquis postop day 1 if no active bleeding Time Spent With Patient Total time spent: Total time spent today is 40 minutes, 30 minutes in coordination of care and discussing with patient other providers operative and postoperative management of hip fracture, cardiac disease, DVT per Subjective Date Seen: 01/22/24 Interval history: Ezio Horton is a 73 year old male past medical history significant for factor 5 Leiden mutation, history of DVT, history of PE, atrial fibrillation status post cardioversion on chronic anticoagulation, complete AV block, status post pacemaker, recent diagnosis prostate cancer is admitted to medical floor from the ED for further management right hip fracture. 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 Denies hitting his head. Currently denies headache or dizziness. Denies chest pain or shortness of breath. No recent fevers. Had some nausea in the ED when given Dilaudid otherwise denies ongoing nausea, recent vomiting or diarrhea. Hip pain currently 4-5/10. ED provider discussed with Orthopedic Surgery, Dr. Power, plan for surgical repair likely tomorrow. Patient has a significant cardiac history (he's been told it's not the muscle, just the wiring), chronically anticoagulated, last dose Eliquis last night 01/19 at 8:30 p.m. Has a dual chamber pacemaker, last interrogated yesterday 01/19. History of previous surgeries, denies anesthesia complications. History of factor 5 Leiden with DVTs, PEs, chronically anticoagulated. January 21: Other than his hip injury he reports feeling well. No chest pain or dyspnea. No recent illness. No other injuries. Exam Narrative: Exam Narrative: He is alert and appears in no distress. Respirations are clear to auscultation. Cardiovascular: S1, S2, regular rate and rhythm. No murmur gallop or rub. Abdomen: Bowel sounds active. Abdomen is soft without tenderness. Lower extremities with intact pulses and sensation intact motion and strength in both feet and ankles. Const: Vital Signs, click to edit/add: Vital Signs - 24 hr 01/21/24 15:05 01/21/24 15:36 01/21/24 19:00 Temperature 97.4 F L 97.4 F L 97.8 F Pulse Rate Pulse Rate [Pulse Oximeter] 55 L 55 L 71 Respiratory Rate 18 18 18 Blood Pressure Blood Pressure [Le ft Arm] 142/84 H 142/84 H 135/85 Pulse Oximetry 98 98 93 Oxygen Delivery Me thod Nasal Cannula Nasal Cannula Room Air Oxygen Flow Rate 1 1 Fraction of Inspir ed Oxygen 01/21/24 19:29 01/21/24 23:00 01/21/24 23:21 Temperature Pulse Rate 79 74 Pulse Rate [Pulse Oximeter] 70 Respiratory Rate 18 Blood Pressure Blood Pressure [Le ft Arm] Pulse Oximetry Oxygen Delivery Me thod Oxygen Flow Rate Fraction of Inspir ed Oxygen 01/22/24 00:06 01/22/24 03:00 01/22/24 07:00 Temperature 98.4 F 97.7 F 97.7 F Pulse Rate Pulse Rate [Pulse Oximeter] 70 60 65 Respiratory Rate 18 16 16 Blood Pressure Blood Pressure [Le ft Arm] 121/70 124/84 125/82 Pulse Oximetry 93 93 94 Oxygen Delivery Me thod Room Air Room Air Room Air Oxygen Flow Rate Fraction of Inspir ed Oxygen 01/22/24 07:14 01/22/24 13:16 01/22/24 13:20 Temperature 97.2 F L Pulse Rate 60 65 63 Pulse Rate [Pulse Oximeter] Respiratory Rate 14 14 Blood Pressure 103/61 110/70 Blood Pressure [Le ft Arm] Pulse Oximetry 96 96 Oxygen Delivery Me thod Non Rebreather Mas k Non Rebreather Mas k Oxygen Flow Rate 10 10 Fraction of Inspir ed Oxygen 100 100 01/22/24 13:25 01/22/24 13:30 01/22/24 13:35 Temperature Pulse Rate 68 65 68 Pulse Rate [Pulse Oximeter] Respiratory Rate 16 16 16 Blood Pressure 119/76 122/79 122/77 Blood Pressure [Le ft Arm] Pulse Oximetry 96 96 92 Oxygen Delivery Me thod Non Rebreather Mas k Room Air Room Air Oxygen Flow Rate 10 Fraction of Inspir ed Oxygen 100 01/22/24 13:40 01/22/24 13:45 Temperature 97.0 F L Pulse Rate 64 60 Pulse Rate [Pulse Oximeter] Respiratory Rate 16 16 Blood Pressure 127/80 131/73 Blood Pressure [Le ft Arm] Pulse Oximetry 92 91 Oxygen Delivery Me thod Room Air Room Air Oxygen Flow Rate Fraction of Inspir ed Oxygen Documenting provider has reviewed patient's vital signs: yes Labs Labs: Laboratory Results - last 24 hr 01/22/24 05:52 WBC 7.19 RBC 4.31 Hgb 14.3 Hct 43.1 MCV 100 MCH 33 MCHC 33 Plt Count 140 INR 1.03 Sodium 140 Potassium 4.1 Chloride 111 Carbon Dioxide 24 Anion Gap 5 L BUN 17 Creatinine 0.8 Estimated Creat Clear 80.44 Estimated GFR 92 Glucose 108 Calcium 8.7
[2024-01-22] MEDS: TAMSULOSIN HCL 0.4 MG CAPSULE PO (20:55)
[2024-01-23] MEDS: CEFAZOLIN 2 GM in 0.9 % SODIUM CHLORIDE Mini-bag 100 ML IVPB ×2 (01:31→09:29)
[2024-01-23] MEDS: SODIUM CHLORIDE 0.9 % (FLUSH) 10 ML SYRINGE 5 ML IVF ×2 (01:35→09:30)
[2024-01-23 02:54] VITALS: BP 104/66; PULSE 60; RESP 16; TEMP 36.4; O2SAT 91
[2024-01-23] MEDS: ACETAMINOPHEN 500 MG TABLET 1000 MG PO ×2 (04:47→09:30)
[2024-01-23 06:30] LABS: Hematocrit 39.9 % (37.0-53.0); Hemoglobin* 13.1 gm/dL (13.5-17.5); Mean Corpuscular HGB Conc 33 gm/dL (32-36); Mean Corpuscular Hemoglobin 33 pg (26-34); Mean Corpuscular Volume 100 fL (80-100); Platelet Count* 131 K/uL (140-440); Red Blood Count 4.01 m/uL (4.30-5.90); White Blood Count* 10.31 K/uL (4.50-11.00)
[2024-01-23 06:31] LABS: Slide Review Reflex No
--- NOTE | 2024-01-23 06:39 | PC.NURSE ---
End of shift note [id number]: Pt alert & oriented x 4 and able to make needs known. He has been continent of bladder using urinal throughout the shift. VSS and pt has been afebrile. Pt currently has abductor pillow in place postoperatively. Dressing to R hip noted to be C/D/I upon inspection. Pt denies nausea when asked and is tolerating food and po fluids. Pt SL last evening due to adequate po intake with no N/V. Pt remains on telemetry with NSR with first degree AV block noted- pt has pacemaker. IV to L wrist patent and SL. He is transferring/ambulating well with assist of 1 using FWW and gait belt. Minimal pain to R hip/leg 1-2/ per pt report has been controlled with rest, repositioning, ice and scheduled Tylenol along with PRN Oxycodone before pt getting up out of bed. ?
[2024-01-23 06:47] LABS: Chloride* 106 mmol/L (96-114); Potassium* 4.1 mmol/L (3.6-5.1); Sodium* 137 mmol/L (135-149)
[2024-01-23 06:49] LABS: Creatinine* 0.8 mg/dL (0.5-1.5); Est. Creatinine Clearance* 80.44; Estimated Glomerular Filt Rate 92 ml/min
[2024-01-23 06:50] LABS: Anion Gap 4 mEq/L (7-15); Blood Urea Nitrogen* 16 mg/dL (7-30); Carbon Dioxide* 27 mmol/L (20-32); Glucose* 121 mg/dL (60-115)
[2024-01-23 06:51] LABS: Calcium* 8.3 mg/dL (8.4-10.6)
[2024-01-23 07:50] VITALS: PULSE 63
[2024-01-23 09:21] VITALS: BP 114/72; PULSE 60; PULSE 68; RESP 16; TEMP 36.2; O2SAT 97
[2024-01-23] MEDS: APIXABAN 5 MG TABLET PO (09:29)
[2024-01-23 09:30] VITALS: RESP 16; O2SAT 97
[2024-01-23] MEDS: FAMOTIDINE 20 MG TABLET PO (09:30)
[2024-01-23] MEDS: FUROSEMIDE 20 MG TABLET PO (09:30)
[2024-01-23] MEDS: SOTALOL HCL 80 MG TABLET 160 MG PO (09:30)
[2024-01-23] MEDS: OXYCODONE 5 MG TABLET PO (09:55)
[2024-01-23 12:37] VITALS: BP 118/71; PULSE 60; RESP 12; O2SAT 96
--- NOTE | 2024-01-23 12:59 | PM.DS1 ---
DS: Providers Provider Date Seen: 01/23/24 Date of admission: 01/21/24 14:58 Primary care physician: Jovanny Majano MD Admitting Clinician: Jason Cooney MD Consults: 01/21/24 14:49 Consult to Occupational Therapy [CONS] Routine Comment: Reason(s) for OT Consult:: Evaluate and Treat Any Restrictions?:: No Restrictions Consult to Physical Therapy [CONS] Routine Comment: Reason(s) for PT Consult:: Evaluate and Treat Any Restrictions?:: No Restrictions 01/22/24 13:58 Consult to Physical Therapy [CONS] Routine Comment: Reason(s) for PT Consult:: Evaluate and Treat Any Restrictions?:: Wt Bearing as Tolerated Comment: posterior total hip precautions Consult to Marketing Strategy Manager [CONS] Routine Comment: Reason for Consult:: Discharge Planning Needs Attending Physician on discharge: Maylin Ledbetter MD Date of Discharge: 01/23/24 DS: Diagnosis Discharge Diagnosis (1) Hip fracture: Status: Acute Problem details: - Impacted subcapital femoral neck fracture of the right hip, s/p mechanical fall - s/p Right hip bipolar hemiarthroplasty with Dr. Silver on 01/21 - cleared by PT/OT for discharge home with sister on 01/22 (2) Atrial fibrillation: Status: Chronic Problem details: - EKG on admission revealed NSR with sinus arrhythmia, nonspecific intraventricular block, ventricular rate 69, QTC 471 - On sotalol since 2009, continued postoperatively - s/p Cardioversion 2017, 2018, 2020, 2021 - CHADS VASc risk score 1, switched to Eliquis (from warfarin) in 2019 - last dose Eliquis 01/19 at 2030, restarted 01/22 upon discharge - Followed by [facility], last visit just prior to fall on 01/20/2024 Echocardiogram June 2022 1. LVEF estimate 55-60%. Normal LV size and wall thickness. 2. Normal RV size and global function. 3. No significant valvular abnormalities. 4. Moderately enlarged left atrium. 5. Normal PASP and RA pressure estimates. 6. Mildly dilated ascending aorta [4.2 cm]. (3) Cardiomyopathy: Status: Acute Problem details: - well compensated, saw Cardiology earlier in the week for routine f/u (4) Status post placement of cardiac pacemaker: Status: Chronic Problem details: - Dual chamber permanent pacemaker placed September 2019 for complete AV block - last device check yesterday 01/20/24 (5) BPH (benign prostatic hyperplasia): Status: Acute Problem details: - continued home dose of Tamsulosin during stay, no urinary retention noted postoperatively (6) Prostate cancer: Status: Acute Problem details: - recently diagnosed, unable to find exact staging - scheduled for prostatectomy with bilateral lymph node dissection 02/16/24 (7) History of DVT of lower extremity: Status: Acute Problem details: - 2019, continuing Eliquis postoperatively for anticoagulation DS: Summary Hospital Course Hospital Course: Reinier is a very pleasant 73 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 Had surgery on 01/[address] Silver, no operative, anesthetic, or postoperative complications. Seen by therapies and cleared for discharge home on postop day 1. He will be staying with his sister during the rehab period. Medical history noted above, comorbidities remained stable during stay. Status at Discharge Functional status at discharge: uses cane/walker Overall status at discharge: patient is progressing back to baseline Time Spent with Patient Time attestation: Total time spent providing and/or coordinating discharge services: Time spent: Less than 30 minutes Exam Narrative: Exam Narrative: GEN: Alert and oriented, nontoxic and answering questions appropriately HEENT: EOMIs bilaterally, no scleral icterus CV: RRR, No concerning murmurs R: LCTA bilaterally without concerning wheezing Ext: Wearing Matteo hose bilaterally Skin: No concerning skin lesions or rashes on exposed skin Neuro: No focal deficits, ambulating with walker during therapies Psych: Appropriate Const: Vital Signs, click to edit/add: Vital Signs - 24 hr 01/22/24 13:16 01/22/24 13:20 01/22/24 13:25 Temperature 97.2 F L Pulse Rate 65 63 68 Pulse Rate [Pulse Oximeter] Respiratory Rate 14 14 16 Blood Pressure 103/61 110/70 119/76 Blood Pressure [Le ft Arm] Blood Pressure [Ri ght Arm] Pulse Oximetry 96 96 96 Oxygen Delivery Me thod Non Rebreather Mas k Non Rebreather Mas k Non Rebreather Mas k Oxygen Flow Rate 10 10 10 Fraction of Inspir ed Oxygen 100 100 100 01/22/24 13:30 01/22/24 13:35 01/22/24 13:40 Temperature Pulse Rate 65 68 64 Pulse Rate [Pulse Oximeter] Respiratory Rate 16 16 16 Blood Pressure 122/79 122/77 127/80 Blood Pressure [Le ft Arm] Blood Pressure [Ri ght Arm] Pulse Oximetry 96 92 92 Oxygen Delivery Me thod Room Air Room Air Room Air Oxygen Flow Rate Fraction of Inspir ed Oxygen 01/22/24 13:45 01/22/24 13:57 01/22/24 14:20 Temperature 97.0 F L 97.6 F 98 F Pulse Rate 60 60 Pulse Rate [Pulse Oximeter] 67 Respiratory Rate 16 18 14 Blood Pressure 131/73 137/93 H Blood Pressure [Le ft Arm] 136/88 Blood Pressure [Ri ght Arm] Pulse Oximetry 91 90 94 Oxygen Delivery Me thod Room Air Room Air Nasal Cannula Oxygen Flow Rate 2 Fraction of Inspir ed Oxygen 01/22/24 14:35 01/22/24 14:49 01/22/24 14:50 Temperature 97.6 F 97.8 F 97.5 F L Pulse Rate 60 60 60 Pulse Rate [Pulse Oximeter] Respiratory Rate 14 14 15 Blood Pressure 140/86 H 134/80 135/83 Blood Pressure [Le ft Arm] Blood Pressure [Ri ght Arm] Pulse Oximetry 93 93 94 Oxygen Delivery Me thod Nasal Cannula Nasal Cannula Nasal Cannula Oxygen Flow Rate 2 2 2 Fraction of Inspir ed Oxygen 01/22/24 15:00 01/22/24 15:05 01/22/24 15:30 Temperature 98.1 F 97.8 F Pulse Rate 60 60 Pulse Rate [Pulse Oximeter] Respiratory Rate 13 14 Blood Pressure 123/75 134/80 Blood Pressure [Le ft Arm] Blood Pressure [Ri ght Arm] Pulse Oximetry 97 96 93 Oxygen Delivery Me thod Room Air Nasal Cannula Nasal Cannula Oxygen Flow Rate 2 2 Fraction of Inspir ed Oxygen 01/22/24 16:00 01/22/24 17:10 01/22/24 17:26 Temperature 99.1 F 97.1 F L Pulse Rate 60 61 62 Pulse Rate [Pulse Oximeter] Respiratory Rate 14 16 Blood Pressure 135/82 138/88 Blood Pressure [Le ft Arm] Blood Pressure [Ri ght Arm] Pulse Oximetry 97 97 Oxygen Delivery Me thod Nasal Cannula Nasal Cannula Oxygen Flow Rate 2 2 Fraction of Inspir ed Oxygen 01/22/24 18:24 01/22/24 19:15 01/22/24 19:15 Temperature 97.2 F L 98.0 F 98.0 F Pulse Rate 65 69 Pulse Rate [Pulse Oximeter] 69 Respiratory Rate 14 14 14 Blood Pressure 144/96 H 110/73 Blood Pressure [Le ft Arm] 110/73 Blood Pressure [Ri ght Arm] Pulse Oximetry 95 95 95 Oxygen Delivery Me thod Nasal Cannula Nasal Cannula Nasal Cannula Oxygen Flow Rate 2 2 2 Fraction of Inspir ed Oxygen 100 100 01/22/24 20:12 01/22/24 23:00 01/22/24 23:00 Temperature 98.2 F 98.0 F Pulse Rate 76 Pulse Rate [Pulse Oximeter] 63 Respiratory Rate 16 18 18 Blood Pressure 133/85 Blood Pressure [Le ft Arm] 119/71 Blood Pressure [Ri ght Arm] Pulse Oximetry 94 94 94 Oxygen Delivery Me thod Room Air Room Air Room Air Oxygen Flow Rate Fraction of Inspir ed Oxygen 100 100 01/22/24 23:00 01/22/24 23:00 01/23/24 02:54 Temperature 97.5 F L Pulse Rate 64 Pulse Rate [Pulse Oximeter] 63 60 Respiratory Rate 18 16 Blood Pressure Blood Pressure [Le ft Arm] 104/66 Blood Pressure [Ri ght Arm] Pulse Oximetry 91 Oxygen Delivery Me thod Room Air Oxygen Flow Rate Fraction of Inspir ed Oxygen 100 01/23/24 07:50 01/23/24 09:21 01/23/24 09:21 Temperature 97.2 F L Pulse Rate 63 Pulse Rate [Pulse Oximeter] 60 68 Respiratory Rate 16 16 Blood Pressure Blood Pressure [Le ft Arm] Blood Pressure [Ri ght Arm] 114/72 Pulse Oximetry 97 Oxygen Delivery Me thod Room Air Oxygen Flow Rate Fraction of Inspir ed Oxygen 01/23/24 09:30 01/23/24 12:37 Temperature Pulse Rate Pulse Rate [Pulse Oximeter] 60 Respiratory Rate 16 12 Blood Pressure Blood Pressure [Le ft Arm] 118/71 Blood Pressure [Ri ght Arm] Pulse Oximetry 97 96 Oxygen Delivery Me thod Room Air Room Air Oxygen Flow Rate Fraction of Inspir ed Oxygen DS: Data Data Completed and Pending Labs on day of discharge: Labs from last 24 hours 01/23/24 06:00 WBC 10.31 RBC 4.01 L Hgb 13.1 L Hct 39.9 MCV 100 MCH 33 MCHC 33 Plt Count 131 L Sodium 137 Potassium 4.1 Chloride 106 Carbon Dioxide 27 Anion Gap 4 L BUN 16 Creatinine 0.8 Estimated Creat Clear 80.44 Estimated GFR 92 Glucose 121 H Calcium 8.3 L Discharge Plan Discharge Disposition: Home, Self-Care Date of Admission: 01/21/24 14:58 Attending Provider on Discharge: Maylin Ledbetter Primary Care Provider: Jovanny Majano Condition: Stable Anticipated Discharge Date/Time: 01/23/24 11:02 Discharge Medications: New sennosides-docusate sodium [Senna-S] 8.6-50 mg tablet 1 - 4 tab-cap PO BID PRN (Reason: constipation) Qty: 60 0RF Rx Instructions: Hold medication if experiencing loose stools. acetaminophen 500 mg capsule 500 - 1,000 mg PO Q6H MDD 4000mg PRNQty: 100 0RF oxycodone 5 mg tablet 2.5 - 5 mg PO Q4-6H MDD 6 PRN (Reason: pain) Qty: 30 0RF Rx Instructions: Take as needed for postop pain: 2.5mg mild pain, 5mg moderate-severe pain; wean as tolerated. Continued apixaban 5 mg tablet 5 mg PO BID famotidine [Acid Controller] 20 mg tablet 20 mg PO DAILY furosemide 20 mg tablet 20 mg PO DAILY Rx Instructions: takes second dose later in day if increased swelling noticed sotalol [Betapace] 80 mg tablet 160 mg PO BID tamsulosin [Flomax] 0.4 mg capsule 0.4 mg PO HS Discharge Orders: Discharge Order (Routine); Ordered 01/23/24 Ordered By: Maylin Ledbetter Patient Education: Acetaminophen (By mouth), Oxycodone, Rapid Release (By mouth), Laxative, Stimulant Combination (By mouth), Hip Abduction Pillow (DC), ORIF of Hip Fracture (DC) Activity Level: Activity as Tolerated, Up with assist, Weight Bearing as Tolerated and Use Walker Activity Detail: Wound: ? Do not remove original dressing until 1 week postop. May remove dressing sooner if integrity is in question. ? No immersing wound in water; showering okay; light scrub with your hand and body soap, rinse, dab dry ? Sutures are under the skin, will dissolve; allow surgical glue to come off naturally; do not scrub the wound or apply ointments/lotions ? Call our office with any redness that streaks, excessive drainage from the wound, or wound gapping. Ice/Elevate: ? Ice as needed for swelling and discomfort (ice pack); elevate extremity frequently above the heart. Motion/Exercise: ? Weight bear as tolerated operative extremity (walker/cane for ambulation assistance as needed) ? Per PT/OT - posterior hip precautions ? Straight leg raises daily: 1-2 sets of 10 reps Pain Medications: ? Oral narcotic as prescribed. Wean as tolerated. May take additional acetaminophen as needed. Blood Clot Prevention (DVT): ? Medication: Return to your normal dosing of apixaban Driving: ? Do not drive while taking narcotic pain medication ? Anticipate 4-6 weeks no driving if operative leg is driving leg Dental: ? No elective dental work for 6 months post-op. If there is an urgent/emergent dental need, contact our office for an antibiotic prescription. Smoking/Alcohol: ? Do not smoke; do no drink alcohol especially when taking postoperative oral narcotic medication Seek Care from you Primary Care Provider if you experience the following issues in the postoperative phase and beyond: ? Bacterial infections such as: pneumonia, bacterial skin infection (cellulitis), UTI, high fever, chills unrelated to the operative body part - call your primary care physician urgently for treatment in hopes to protect your health and the metal implant. Referrals: ? PT, OT per patient preference - evaluate and treat bipolar hemiarthroplasty, posterior hip precautions (gait training, ROM, ADLs) Vaccines: ? No vaccines until 4-6 weeks postop Follow up: ? PA-C visit in 1 week, or once discharged from SNF. ? Ortho surgeon follow-up in 6 weeks; repeat radiographs AP pelvis, cross table lateral operative hip If there are any acute concerns regarding your surgery, please call our orthopedic clinic ([phone]) Discharge Diet: Regular Follow Up Appointments: Donell Sun PA-C [Physician Welder [employer] [facility]] - 01/30/24 9:50 am (post surgical follow up appointment. ) Jovanny Majano MD [Primary Care Provider] - 02/03/24 2:20 pm ([facility] clinic for Post-Hospital Follow up. ) Forms: [employer] Info Instructions
--- NOTE | 2024-01-23 14:08 | PC.NURSE ---
Nursing Care Hours: [id number] Pt this shift calm and cooperative, alert and oriented x4. Pain controlled per eMAR. SB assist with walker and gait belt. IV removed for dischge. Instructions went over with pt and sister who pt will be going home with to recover. Bandage CDI. VSS. Wheeled out to vehicle in stable condition.
== END 2024-01-23 12:57 | disposition home or self-care (01) | DRG 522 ==
LOC: ED 14:40 → MEDSURG 14:59
PROVIDERS: Orthopaedic Surgery Sports Medicine; Admitting Provider Physician Assistant; Emergency Provider Family Medicine; PCP Family Medicine; Visit Provider Family Medicine
PROC: 0SRR0J9 Replacement of Right Hip Joint, Femoral Surface with Synthetic Substitute, Cemented, Open Approach (ICD-10-PCS; principal; 2024-01-22 10:45)
DX: S72.011A Unspecified intracapsular fracture of right femur, initial encounter for closed fracture (principal); I48.20 Chronic atrial fibrillation, unspecified; I44.2 Atrioventricular block, complete; I50.20 Unspecified systolic (congestive) heart failure; D68.51 Activated protein C resistance; I42.9 Cardiomyopathy, unspecified; Z95.0 Presence of cardiac pacemaker; N40.0 Benign prostatic hyperplasia without lower urinary tract symptoms; C61 Malignant neoplasm of prostate; W01.0XXA Fall on same level from slipping, tripping and stumbling without subsequent striking against object, initial encounter; Z79.01 Long term (current) use of anticoagulants; Z86.718 Personal history of other venous thrombosis and embolism; Z86.711 Personal history of pulmonary embolism; I77.810 Thoracic aortic ectasia; Y93.K2 Activity, milking an animal; Y92.71 Barn as the place of occurrence of the external cause; M25.511 Pain in right shoulder
CPT/HCPCS: 01210; 36415; 71045; 73501; 73502; 80048; 85025; 85027; 85610; 85730; 93005; 94761; 97110; 97116; 97161; 97165; 97535; 99100; 99284; 99285; G0378; A9270; C1776; J0330; J0690; J1100; J1170; J2250; J2371; J2405; J2704; J3010; J3490; J7030; J7120